=== PATIENT | female | born 1975 | race Caucasian/White ===

== ENCOUNTER 2017-01-23 07:46 | Emergency (ER) | payer OTHER ==
[2017-01-23 08:13] VITALS: BP 146/95; PULSE 91; RESP 18; TEMP 98.1; O2SAT 96
--- NOTE | 2017-01-23 08:13 | UCPHY ---
H & P Time Seen by Provider: 01/23/17 07:53 Patient Type: Established HPI/ROS: HPI Left side pain. 41-year-old female by private vehicle. She complains of left-sided upper mid abdominal and flank pain. Onset 5 days ago. Worse when she sleeps on that side at night. She reports she noticed that her urine appeared pinkish yesterday but not today. She otherwise denies any urinary complaints. She has had normal bowel movements. No bloody or melenic stool. There is no history of trauma. No fever. No cough for shortness of breath. She denies any other complaints. ROS: Constitutional: No fever, no chills. No weakness. Eyes: No discharge. No changes in vision. ENT: No sore throat. No nasal congestion or rhinorrhea. Respiratory: No cough. No shortness of breath. Cardiac: No chest pain, no palpitations. Gastrointestinal: As above, no vomiting, no diarrhea. Genitourinary: As above. No dysuria or increased frequency with urination. Musculoskeletal: As above. No neck pain. No myalgias or arthralgias. Skin: No rashes. Neurological: No headache. No focal weakness or altered sensation. Past medical history: No past medical history. She does have a local OBGYN. Social history: Here by herself. Nonsmoker. Physical Exam: General Appearance: Alert, no distress. This patient is responding to questions appropriately and in full sentences. This patient appears well- hydrated and well-nourished. Eyes: Pupils equal and round no pallor or injection. No lid edema, erythema or injection. ENT, Mouth: Mucous membranes are moist. The pharyngeal tissues are unremarkable. No edema or swelling. No asymmetry suggestive of abscess. No erythema or exudates. Respiratory: There are no retractions, lungs are clear to auscultation with good air movement bilaterally. Cardiovascular: Regular rate and rhythm. No murmur. Gastrointestinal: Abdomen is soft and nontender, no masses, bowel sounds normal. No focal tenderness at McBurney's point. No adnexal tenderness on palpation. No Gee sign. She has some vague, mild if any tenderness on palpation mid axillary line just below the costal margin on the left. No soft tissue changes. Neurological: Motor sensory function is grossly intact. Cranial nerves are normal. Gait is normal. Skin: Warm and dry, no rashes. Musculoskeletal: No CVA tenderness bilaterally. Extremities are symmetrical. All joints range without pain or impingement. Psychiatric: No agitation. No depression. Database: EKG: Imaging: Abdominal complete ultrasound: Retroperitoneal ultrasound: The spleen is unremarkable. The kidneys ureters are unremarkable. No evidence of hydronephrosis or hydroureter. Gallbladder is unremarkable. The pancreas appears normal. Aorta is normal. No other significant findings. Results were discussed with staff radiologist Dr. Squires. Chest x-ray PA and lateral; the cardiac mediastinal silhouette is unremarkable. No evidence of infiltrate or pneumothorax. No acute cardiopulmonary disease process noted. Interpreted by me. Procedures: Emergency department course: Her vital signs have been reviewed and are normal. She appears comfortable. She is declining any pain medications. Chest x-ray and ultrasound as above obtained. Urinalysis obtained. 9:00 a.m., results of ultrasound discussed with the patient. She is resting comfortably right now. She has not required any narcotic pain medications. Blood work pending. 10:00 a.m., patient re-evaluated. She appears comfortable. She denies any significant pain. Results of blood work discussed. Normal renal function. Other diagnostic workup results reviewed with her. I discussed the differential diagnosis. Plan will be to treat her for possible urinary tract infection/early pyelonephritis. She is to follow up with her primary care physician on Thursday for re-evaluation. Pain will be treated with ibuprofen at this time. Strict return to Urgent Care/emergency department precautions reviewed with her. She feels comfortable going home. All of her questions were answered. She was discharged in good condition. Differential Diagnosis: The differential diagnosis on this patient includes but is not limited to musculoskeletal etiology, kidney stone, nephritis, pneumonia. Pulmonary embolism, ovarian torsion, ectopic , splenic injury, pyelonephritis unlikely. This represents a partial list of diagnoses considered. These considerations are based on history, physical exam, past history, reassessment and diagnostic testing. Smoking Status: Never smoked Constitutional: Initial Vital Signs Temperature (C) 36.7 C 01/23/17 08:06 Heart Rate 91 01/23/17 08:06 Respiratory Rate 18 01/23/17 08:06 Blood Pressure 146/95 H 01/23/17 08:06 O2 Sat (%) 96 01/23/17 08:06 O2 Delivery Mode Room Air Allergies/Adverse Reactions: penicillin Allergy (Verified 01/23/17 08:06) Home Medications: Medication Instructions Recorded Cephalexin [Keflex (*)] 500 mg PO Q6 7 Days 01/23/17 Medical Decision Making - Data Points Laboratory Results: 01/23/17 01/23/17 01/23/17 09:22 07:55 07:55 POC Hgb 15.0 gm/dL gm/dL (12.3-15.9) POC Hct 44 % % (35.5-47.5) POC Sodium 140 mEq/L mEq/L (134-144) POC Potassium 4.9 mEq/L mEq/L (3.3-5.0) POC Chloride 104 mEq/L mEq/L (96-108) POC BUN 8 mg/dL mg/dL (7-23) POC Creatinine 0.6 mg/dL mg/dL (0.6-1.2) POC Glucose 92 mg/dL mg/dL (70-100) Urine Color YELLOW Urine Appearance CLEAR Urine pH 6.0 (5.0-7.5) Ur Specific [place] 1.020 (1.002-1.030) Urine Protein NEGATIVE (NEGATIVE) Urine Ketones NEGATIVE (NEGATIVE) Urine Blood TRACE H (NEGATIVE) Urine Nitrate NEGATIVE (NEGATIVE) Urine Bilirubin NEGATIVE (NEGATIVE) Urine Urobilinogen 0.2 EU EU (0.2-1.0) Ur Leukocyte Esterase NEGATIVE (NEGATIVE) Urine RBC 3-5 /hpf H /hpf (0-3) Urine WBC 3-5 /hpf H /hpf (0-3) Ur Epithelial Cells 2+ /lpf H /lpf (NONE-1+) Urine Bacteria 2+ /hpf H /hpf (NONE SEEN) Hyaline Casts 0-1 /lpf /lpf (0-1) Urine Mucus 1+ /lpf /lpf (NONE-1+) Ur Culture Indicated? INDICATED H (NI) Urine Glucose NEGATIVE (NEGATIVE) Urine Test NEGATIVE Point of Care Test Results: 01/23/17 09:22 POC Sodium 140 POC Potassium 4.9 POC Chloride 104 POC BUN 8 POC Creatinine 0.6 POC Glucose 92 Departure - Departure Disposition: Home, Routine, Self-Care Clinical Impression: Left flank pain, Possible early pyelonephritis Condition: Good Instructions: Flank Pain (ED), Urinary Tract Infection in Women (ED) Additional Instructions: Read and follow provided instructions. Follow-up with your primary care physician on Thursday for re-evaluation Take medication as prescribed through entire course of treatment. Ibuprofen dosin mg every 6 hours with meals for the next 3 days only. Return to the emergency department for worsening pain, fever, vomiting, bloody urine or other serious concerns. Referrals: NONE *PRIMARY CARE P,. [Primary Care Provider] - As per Instructions Prescriptions: Cephalexin [Keflex (*)] 500 mg PO Q6 7 Days - PQRS PQRS Measurement: Not applicable.
[2017-01-23 08:17] LABS: COLOR YELLOW; LEUKOCYTE ESTERASE,URINE NEGATIVE (NEGATIVE); NITRITE,URINE NEGATIVE (NEGATIVE)
[2017-01-23 08:30] LABS: BACTERIA 2+ /hpf (NONE SEEN); HYALINE CASTS 0-1 /lpf (0-1); MUCUS 1+ /lpf (NONE-1+)
[2017-01-23] MEDS ORDERED: CEPHALEXIN 500 MG CAP PO ONE (09:59)
== END 2017-01-23 10:14 | disposition home or self-care (01) ==
LOC: CED 07:46
DX: R10.12 Left upper quadrant pain (principal)
CPT/HCPCS: 71020-PO; 76700-PO; 81003-PO; 81015-PO; 81025-PO; 82947-QW; G0463-PO

== ENCOUNTER → 2018-03-10 | Outpatient (CLI) | payer OTHER | LOC: FIMAGING 09:45 | PROVIDERS: ATTEND Obstetrics & Gynecology | DX: Z12.31 Encounter for screening mammogram for malignant neoplasm of breast (principal) ==